=== PATIENT | female | born 1985 | race Caucasian/White ===

== ENCOUNTER → 2016-11-23 | Outpatient (CLI) | payer OTHER ==
--- NOTE | 2016-11-23 21:16 | MR ---
EXAMINATION TYPE: MR thoracic spine wo/w con DATE OF EXAM: 11/23/2016 7:42 PM COMPARISON: NONE HISTORY: DDD, lumbago with sciatica, and discogenic thoracic pain all per order. DDD and bulging disc s with pain for 2 1/2 years going into left thigh per patient. History of prior surgery T11 and T12 l evel. TECHNIQUE: Multiplanar, multisequence imaging of thoracic spine is performed without contrast FINDINGS: Spinal cord shows normal course and caliber as it courses the thoracic spine. Some central cord prominence or syrinx is suspected and upper thoracic levels. Vertebral body heights are satisfac tory. There is loss of normal thoracic kyphosis on sagittal images. There is S-shaped scoliosis levo convex upper thoracic spine and dextroconvex in the mid thoracic spine coronal images. Disc space hei ghts are maintained. There are small posterior disc herniations and lower lumbar levels on sagittal i mages. Artifact from surgical change begins at T11 vertebral body level extends to L1 level. Bone mar row signal intensity is maintained. No suspicious postcontrast enhancement is seen. Review of the axial images confirms central canal prominence or small syrinx running from roughly C7- T1 level through T3-T4 disc space level otherwise upper to midthoracic levels are within normal limit s. Axial images confirm small central disc protrusions minimally effacing anterior thecal sac beginning at T8-T9 level on axial image 22 through T10-T11 level. Bilateral neural foramina remain patent. Artifact from left lateral fusion hardware is seen at T11-T12 and T12-L1 level. Mild splenomegaly is noted on coronal images. IMPRESSION: Small sized syrinx upper thoracic spine. S-shaped scoliosis of thoracic spine with surgic al changes near thoracolumbar junction. Small posterior disc herniations mid to lower thoracic spine just above surgery are noted. Mild splenomegaly is seen.
--- NOTE | 2016-11-23 21:21 | MR ---
EXAMINATION TYPE: MR lumbar spine wo con DATE OF EXAM: 11/23/2016 7:41 PM COMPARISON: Outside MRI lumbar spine July 27, 2014. HISTORY: DDD, Lumbago w/ lt side sciatica TECHNIQUE: Multiplanar, multisequence imaging of the lumbar spine is performed without IV contrast. FINDINGS: Sagittal images of the lumbar spine show vertebral body heights and alignment to appear sat isfactory. There is artifact from surgical hardware in the lower thoracic spine extending to L1 level . There is redemonstration of disc desiccation L3-L4 and L5-S1 levels. Mild disc space narrowing L3-L 4 level is redemonstrated. Small posterior disc herniations are seen at these levels on sagittal imag es. The conus medullaris is normal in position and signal ending at T12-L1 disc space level. The rea ne marrow signal intensity is within normal limits. No significant spurring is seen. Axial images show left lateral artifact at T12-L1 level making evaluation slightly suboptimal, spinal canal appears preserved, bilateral neural foramina appear patent. Axial images at L1-L2 and L2-L3 levels are felt within normal limits. Axial images at L3-L4 level shows central disc protrusion mildly effacing anterior thecal sac on axia l image 15, increased signal posteriorly consistent with annular tear is redemonstrated. Bilateral ne ural foramina remain patent. No significant change from prior study is identified. Axial images at L4-L5 level show mild facet degenerative changes bilaterally otherwise are felt withi n normal limits without significant change from prior. Axial images at L5-S1 level show mild right greater than left facet degenerative changes with left pa racentral disc protrusion redemonstrated on axial image 4, spinal canal is preserved and bilateral ne ural foramina are patent. There is partial visualization of anteverted uterus with central linear low T1 and T2 structure consi stent with IUD. There is partial visualization of nonenlarged right ovary with scattered follicles. IMPRESSION: Postsurgical change upper lumbar spine redemonstrated. Degenerative changes L3-L4 and L5- S1 level are redemonstrated without significant change from prior study seen.
== END | disposition home or self-care (01) ==
LOC: RADMRIMAIN 18:15
PROVIDERS: ATTEND Preventive Medicine Public Health & General Preventive Medicine
DX: M47.817 Spondylosis without myelopathy or radiculopathy, lumbosacral region (principal); M51.24 Other intervertebral disc displacement, thoracic region; M41.9 Scoliosis, unspecified; Z98.890 Other specified postprocedural states
CPT/HCPCS: 72148; 72157; A9577